=== PATIENT | female | born 1980 | race Caucasian/White ===

== ENCOUNTER 2023-02-13 11:45 | Emergency (ER) | payer SELFPAY ==
[2023-02-13 11:49] VITALS: BP 156/90; PULSE 100; RESP 20; TEMP 36.7; O2SAT 99; BMI 35.4
--- NOTE | 2023-02-13 12:10 | ED_ITS ---
HPI - Abdominal Pain General: Chief Complaint: Abdominal Pain Stated Complaint: Left side pains Time Seen by Provider: 02/13/23 11:57 History of Present Illness: 42-year-old female comes in today with complaints of left abdominal pain radiating up into her left shoulder and left neck. Patient appears nontoxic. Patient has a history of anemia and heavy menstrual flow. Patient does not take routine medications. Patient is a smoker. Patient reports the pain for over 1 week. Patient reports increased stress due to her father's fight with glioma. Review of Systems General: Reports: 10 or more systems reviewed and unremarkable except in HPI and below Card: Reports: chest pain Resp: Reports: other (Pain with deep breath) GI: Reports: abdominal pain : Denies: difficulty voiding Skin/Breast: Denies: rash Physical Exam Const: COMMON NORMALS: alert HENMT: COMMON NORMALS: normocephalic HEAD & SCALP: normocephalic MOUTH: Normal oral and palatal mucosa present Neck/C-Spine: COMMON NORMALS: full ROM Chest: COMMONS NORMALS: normal palpation of entire chest wall Resp: COMMON NORMALS: normal respiratory effort and clear to auscultation bilaterally AUSCULTATION: clear to auscultation bilaterally Cardio: COMMON NORMALS: regular rate and regular rhythm RATE: regular rate RHYTHM: regular rhythm GI: AUSCULTATION: Yes normoactive bowel sounds PALPATION: Yes Tenderness to palpation present (GI) Details: LUQ : COMMON NORMALS: Yes no CVA tenderness BLADDER/KIDNEY EXAM: Yes no CVA tenderness Back/Pelvis: COMMON NORMALS: no CVA tenderness Extremity: COMMON NORMALS: no pedal edema Neuro: SENSORIUM/ORIENTATION: Yes alert Skin: COMMON NORMALS: turgor normal GENERAL SKIN EXAM: turgor normal Course Vital Signs: Vital signs: Vital Signs Temperature 98.0 F 02/13/23 11:49 Pulse Rate 90 02/13/23 16:12 Respiratory Rate 16 02/13/23 16:12 Blood Pressure 152/90 02/13/23 16:12 Pulse Oximetry 100 02/13/23 16:12 Oxygen Delivery Me thod Room Air 02/13/23 16:12 MDM - Abdominal Pain Medical Decision Making 42-year-old female comes in today with complaints of left upper quadrant pain radiating to her chest and neck. Patient reports symptoms for over 1 week. On exam abdomen soft with some tenderness in the left upper quadrant. Bowel sounds are present. Vital signs are normal except for some elevation in blood pressure. Differential diagnosis includes gastritis, diverticulitis, ACS, stable angina, anxiety. Laboratory values were unremarkable except for hemoglobin of 7. This is no change from patient's last hemoglobin from a year and a half ago. CMP was unremarkable. D-dimer was slightly elevated at 1.2. CT of the abdomen and pelvis and CTA of the chest noted no significant abnormalities. Chest x-ray was negative. Reviewed exam with patient with recommendations for treatment and follow-up. Believe patient's symptoms are most likely due to anxiety and musculoskeletal pain secondary to sleep disturbance from dealing with her dad's illness. Patient has this chronic anemia which further discussion realized patient has a lot of menstrual bleeding we will recommend follow-up with [facility] for consultation regarding abnormal vaginal bleeding. We also recommended follow-up with hematology and oncology due to the abnormal spleen on the CT scan and her persistent anemia. Patient reports understanding of care plan and need for follow-up or return to the ER. Lab Data 02/13/23 12:24 02/13/23 12:24 Labs/Radiology: Radiology Impressions Chest X-Ray 02/13/23 12:28 Impression: Negative chest. Abdomen/Pelvis CT 02/13/23 12:46 IMPRESSION: 1. Areas of decreased wedge-shaped enhancement involving the posterior lateral spleen suspicious for prior splenic infarcts or splenic laceration. No perisplenic fluid. 2. Mild hepatomegaly. 3. No hydronephrosis in either kidney. 4. Multifollicular ovaries bilaterally. 5. No other acute findings. Notified GENESIS Ladd at 02/13/2023 1:50 PM. Chest CTA 02/13/23 15:21 IMPRESSION: 1. No evidence of pulmonary embolus. 2. Lungs are well aerated. No acute pulmonary infiltrates. 3. No other suspicious findings. Laboratory Results WBC 9.3 10^3/uL (4.0-10.0) 02/13/23 12:24 RBC 4.22 10^6/uL (4.1-5.3) 02/13/23 12:24 Hgb 7.0 g/dL (11.5-15.3) L 02/13/23 12:24 Hct 28.3 % (37.0-47.0) L 02/13/23 12:24 MCV 67.1 fl (81-99) L 02/13/23 12:24 MCH 16.6 pg (28.0-34.0) L 02/13/23 12: MCHC 24.7 g/dL (30.0-36.0) L 02/13/23 12:24 RDW 19.3 % (12.1-15.1) H 02/13/23 12:24 Plt Count 574 10^3/cmm (130-400) H 02/13/23 12:24 MPV 8.8 fL (7.4-10.4) 02/13/23 12:24 Neut % (Auto) 55.6 % 02/13/23 12: Lymph % (Auto) 32.6 % 02/13/23 12:24 [place] % (Auto) 5.0 % 02/13/23 12: Eos % (Auto) 5.7 % 02/13/23 12: Baso % (Auto) 0.8 % 02/13/23 12: Neut # (Auto) 5.16 10^3/uL (1.8-7.7) 02/13/23 12: Lymph # (Auto) 3.0 10^3/uL (0.8-4.8) 02/13/23 12: [place] # (Auto) 0.5 10^3/uL (0.2-0.9) 02/13/23 12:24 Eos # (Auto) 0.5 10^3/uL (0.0-0.8) 02/13/23 12: Baso # (Auto) 0.1 10^3/uL (0.0-0.1) 02/13/23 12: Nucleated RBC % (auto) 0 % 02/13/23 12: Nucleated RBCs # 0.0 /100WBC 02/13/23 12:24 D-Dimer 1.21 ug/mIFEU (0-0.59) H 02/13/23 12:24 Sodium 139 mmol/L (136-145) 02/13/23 12:24 Potassium 3.5 mmol/L (3.5-5.1) 02/13/23 12:24 Chloride 103 mmol/L (98-107) 02/13/23 12:24 Carbon Dioxide 23 mmol/L (22-29) 02/13/23 12:24 Anion Gap 16.5 (5-19) 02/13/23 12:24 BUN 6 mg/dL (6-20) 02/13/23 12:24 Creatinine 0.5 mg/dL (0.5-0.9) 02/13/23 12:24 GFR Calculation 135.3 mL/min (90-130) H 02/13/23 12:24 Glucose 86 mg/dL (65-115) 02/13/23 12:24 Calculated Osmolality 285 mOsm/kg (285-295) 02/13/23 12:24 Calcium 9.1 mg/dL (8.5-10.5) 02/13/23 12:24 Total Bilirubin 0.2 mg/dL (0.15-1.2) 02/13/23 12:24 AST 8 U/L (0-32) 02/13/23 12:24 ALT < 5 U/L (0-33) 02/13/23 12:24 Alkaline Phosphatase 61 U/L (35-105) 02/13/23 12:24 Troponin T Baseline 6 ng/L (0-10) 02/13/23 12:24 Total Protein 7.8 g/dL (6.6-8.7) 02/13/23 12:24 Albumin 4.6 g/dL (3.5-5.2) 02/13/23 12:24 Globulin 3.2 g/dL (1.3-4.6) 02/13/23 12:24 Lipase 39 U/L (13-60) 02/13/23 12:24 HCG, Qual Negative (Negative) 02/13/23 12:24 Urine Color Yellow (Yellow) 02/13/23 12:24 Urine Appearance Clear (CLEAR) 02/13/23 12:24 Urine pH 6 (5-7) 02/13/23 12:24 Ur Specific [place] 1.015 (1.005-1.030) 02/13/23 12:24 Urine Protein Neg (Negative) 02/13/23 12:24 Urine Glucose (UA) Norm (Normal) 02/13/23 12:24 Urine Ketones Negative (Negative) 02/13/23 12:24 Urine Blood Neg (Negative) 02/13/23 12:24 Urine Nitrate Negative (Negative) 02/13/23 12:24 Urine Bilirubin Neg (Negative) 02/13/23 12:24 Urine Urobilinogen Norm mg/dL (Negative) 02/13/23 12:24 Ur Leukocyte Esterase Negative (Negative) 02/13/23 12:24 EKG Data EKG 1: EKG interpretation date: 02/13/23 EKG interpretation time: 12:30 Prior EKG tracings: not available for review Interpretation: EKG shows a regular rate at [address] elevation no ectopy is noted. No prior exam was available for comparison. Discharge Plan Discharge Patient Disposition: Home Clinical Impression: Chronic anemia Heavy menstrual bleeding Qualifiers: Menorrhagia type: with regular cycle Qualified Code(s): N92.0 - Excessive and frequent menstruation with regular cycle Condition: Stable Prescriptions: New FeroSul 325 mg (65 mg iron) tablet 325 mg PO TID Qty: 90 0RF Discharge Orders: Discharge ED (Routine); Ordered 02/13/23 Ordered By: Elliott Urena Patient Instructions: Anemia (ED) Activity Restrictions/Additional Instructions: Home and rest. Take iron 325 mg 1 tablet 3 times a day with each meal daily. Drink plenty of water with medication. Follow-up with primary care for further instruction. 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 Return to ER for worsening symptoms such as high fever, severe shortness of breath, or fainting episodes. Coding Level of Care Code ED [employer] Operations [employer] for Eren Julian
--- NOTE | 2023-02-13 12:11 | ECG_ITS ---
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 Measurements Intervals [place] Rate: 91 P: 56 [place]: 149 QRS: 72 QRSD: 88 T: 58 QT: 338 QTc: 416 Interpretive Statements SINUS RHYTHM No previous ECG available for comparison Electronically Signed On 02-13-2023 13:40:07 CDT by Harry Collier M.D. [id number]
[2023-02-13 12:13] VITALS: BP 162/84; PULSE 99; RESP 16; O2SAT 99
--- NOTE | 2023-02-13 12:28 | XR_ITS ---
WS: [id number] Portable AP upright chest, 02/13/2023 Clinical Data: left chest pain Comparison: None. Findings: No nodules, masses or effusions are seen. The heart is normal. The pulmonary vascularity is not increased. No pneumonia or pneumothorax is seen. XR/XR chest 1V portable [id number] Impression: Negative chest.
[2023-02-13 12:38] VITALS: BP 127/94; PULSE 97; RESP 16; O2SAT 100
[2023-02-13 12:45] LABS: Add Urine Microscopic? NO; Basophils # 0.1 10^3/uL (0.0-0.1); Basophils % 0.8 %; Charge for UA Resulting for Rev; Eosinophils # 0.5 10^3/uL (0.0-0.8); Eosinophils % 5.7 %; Hematocrit 28.3 % (37.0-47.0); Lymphocytes % 32.6 %; Mean Corpuscular HGB Conc 24.7 g/dL (30.0-36.0); Mean Corpuscular Hemoglobin 16.6 pg (28.0-34.0); Mean Corpuscular Volume 67.1 fl (81-99); Mean Platelet Volume 8.8 fL (7.4-10.4); Monocytes # 0.5 10^3/uL (0.2-0.9); Neutrophils # 5.16 10^3/uL (1.8-7.7); Neutrophils % 55.6 %; Nucleated Red Blood Cells % 0 %; Platelet Count 574 10^3/cmm (130-400); Red Blood Count 4.22 10^6/uL (4.1-5.3); Red Cell Distribution Width 19.3 % (12.1-15.1); White Blood Count 9.3 10^3/uL (4.0-10.0)
--- NOTE | 2023-02-13 12:46 | CT_ITS ---
WS: [id number] CT ABDOMEN PELVIS TECHNIQUE: Contrast-enhanced CT of the abdomen and pelvis with coronal and sagittal reformatted image s. CLINICAL INFORMATION: left side abd pain COMPARISON: None. DLP: 658.[address] scans at [facility] use at least one of these dose optimization techniques: automated e xposure control; mA and/or kV adjustment per patient size (includes targeted exams where dose is matc hed to clinical indication); or iterative reconstruction. FINDINGS: Mild hepatomegaly. Enlarged RIGHT hepatic lobe. A few tiny hepatic cysts. Suspected tiny cavernous he mangioma near the liver dome. Gallbladder is contracted. Lung bases are well aerated. Normal GE junction. Adrenal glands are normal. Normal renal parenchymal enhancement. No hydronephrosi s. Wedge-shaped areas of decreased attenuation in the posterolateral spleen suspicious for splenic infar cts or prior splenic laceration. No significant fluid around the spleen. Normal pancreatic parenchyma l enhancement. Normal portal vein and splenic vein. Normal appendix in the RIGHT lower quadrant. Normal caliber abdominal aorta. Celiac and SMA are paten t. Multifollicular ovaries bilaterally. CT/CT abdomen pelvis w con* [id number] IMPRESSION: 1. Areas of decreased wedge-shaped enhancement involving the posterior lateral spleen suspicious for prior splenic infarcts or splenic laceration. No perispl enic fluid. 2. Mild hepatomegaly. 3. No hydronephrosis in either kidney. 4. Multifollicular ovaries bilaterally. 5. No other acute findings. Notified GENESIS Ladd at 02/13/2023 1:50 PM.
[2023-02-13 12:55] LABS: HCG, Serum Qual Negative (Negative)
[2023-02-13 13:02] LABS: Alanine Aminotransferase < 5 U/L (0-33); Albumin Level 4.6 g/dL (3.5-5.2); Alkaline Phosphatase 61 U/L (35-105); Anion Gap 16.5 (5-19); Aspartate Amino Transferase 8 U/L (0-32); Blood Urea Nitrogen 6 mg/dL (6-20); Calcium 9.1 mg/dL (8.5-10.5); Carbon Dioxide 23 mmol/L (22-29); Chloride 103 mmol/L (98-107); Globulin 3.2 g/dL (1.3-4.6); Glomerular Filtration Rate 135.3 mL/min (90-130); Glucose 86 mg/dL (65-115); Lipase 39 U/L (13-60); Osmolality Calculated 285 mOsm/kg (285-295); Potassium 3.5 mmol/L (3.5-5.1); Sodium 139 mmol/L (136-145); Total Bilirubin 0.2 mg/dL (0.15-1.2); Total Protein 7.8 g/dL (6.6-8.7)
[2023-02-13 13:03] LABS: Troponin(5th) Baseline 6 ng/L (0-10)
[2023-02-13 13:07] LABS: Bilirubin Urine Neg (Negative); Blood Urine Neg (Negative); Glucose Urine UA Norm (Normal); Ketones Urine Negative (Negative); Leukocyte Esterase Urine Negative (Negative); Nitrate Urine Negative (Negative); Protein Urine Neg (Negative); Specific Gravity, Urine 1.015 (1.005-1.030); Urine Appearance Clear (CLEAR); Urine Color Yellow (Yellow); Urobilinogen Urine Norm (Negative); pH Urine 6 (5-7)
[2023-02-13] MEDS: iohexol 350 mg/mL 500 mL Btl (per mL) IV ×2 (13:14→15:48)
[2023-02-13 13:40] VITALS: BP 127/94; PULSE 91; RESP 16; O2SAT 100
--- NOTE | 2023-02-13 14:11 | ECG_ITS ---
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 Measurements Intervals [place] Rate: 87 P: 51 OR: 160 QRS: 70 QRSD: 88 T: 54 QT: 355 QTc: 427 Interpretive Statements SINUS RHYTHM Compared to ECG 02/13/2023 12:24:34 No significant changes Electronically Signed On 02-13-2023 21:39:15 CDT by Harry Collier M.D. [id number]
[2023-02-13 14:57] LABS: D Dimer 1.21 ug/mIFEU (0-0.59)
--- NOTE | 2023-02-13 15:21 | CT_ITS ---
WS: [id number] CTA OF THE CHEST WITH PULMONARY EMBOLISM PROTOCOL TECHNIQUE: High-resolution contrast enhanced CTA of the chest with coronal and sagittal reformatted i selene with pulmonary embolism protocol. MIP images are also reviewed. CLINICAL INFORMATION: chest pain, tachycardia COMPARISON: None. DLP: 385.[address] scans at [facility] use at least one of these dose optimization techniques: automated e xposure control; mA and/or kV adjustment per patient size (includes targeted exams where dose is matc hed to clinical indication); or iterative reconstruction. FINDINGS: Proximal main pulmonary arteries are normal. Normal segmental and subsegmental pulmonary arteries. No evidence of pulmonary embolus. Lungs are well aerated. No acute pulmonary infiltrates. Slight bibasi lar atelectasis. Adrenal glands are normal. Small esophageal hiatal hernia. Suspected splenic infarcts partially visua lized and described on the CT abdomen pelvis. CT/CT angio chest PE protcl [id number] IMPRESSION: 1. No evidence of pulmonary embolus. 2. Lungs are well aerated. No acute pulmonary infiltrates. 3. No other suspicious findings.
[2023-02-13 16:12] VITALS: BP 152/90; PULSE 90; RESP 16; O2SAT 100
--- NOTE | 2023-02-16 12:54 | DCPLANNER ---
Addendum entered by Beatriz Aviles 03/12/23 11:22: manager of finance received the following message from [facility] regarding follow up appointment: Patient never returned our call to schedule an appointment//JS Addendum entered by Beatriz Aviles 02/20/23 11:40: manager of finance received the following messages from [facility] regarding follow up appointment: Humberto Lobo completed item. On Thu 11:07a February 19, 2023 Abby Ibanez (Covering For: [facility]) Wrote To: [facility] I called the pt to 02/17/23, 02/18/23, 02/1823 schedule an appt. I left a vm each time. I also mailed a letter on 02/19/23 On Tue 10:55a February 17, 2023 Abby Ibanez (Covering For: [facility]) Wrote To: [facility] I called the pt and left a vm letting her know that I was calling to schedule an appt. Addendum entered by Beatriz Aviles 02/18/23 13:51: manager of finance received the following message from [facility] regarding follow up appointment: I called the pt and left a vm letting her know that I was calling to schedule an appt. Original Note: manager of finance had message to schedule a follow up appointment for patient with [employer] [employer]. manager of finance sent patients information to the front office staff at [facility]. Patients information will be printed and reviewed. Clinic will call patient with appointment information.
--- NOTE | 2023-02-16 12:56 | DCPLANNER ---
Addendum entered by Beatriz Aviles 02/18/23 13:22: Patient has a follow up appointment scheduled for Thursday, February 23, 2023 at 8:[address] Borrego. Original Note: complex case manager had message to schedule a follow up appointment for patient with hematology, oncology. complex case manager sent patients information to [facility] Patients information will be printed and reviewed. Clinic will call patient with appointment information.
--- NOTE | 2023-02-22 09:19 | DCPLANNER ---
TCM called patient due to no primary care physician - no answer at this time.
== END 2023-02-13 17:22 | disposition home or self-care (01) ==
PROVIDERS: Emergency Provider Nurse Practitioner Family
DX: N92.0 Excessive and frequent menstruation with regular cycle (principal); D64.89 Other specified anemias; F17.210 Nicotine dependence, cigarettes, uncomplicated
CPT/HCPCS: 71045; 71275; 74177; 80053; 81003; 83690; 84484; 84703; 85025; 85378; 93005; 99285; Q9967

== ENCOUNTER 2023-03-23 11:10 | Oncology outpatient (recurring) (ONCR) | payer BC, MEDICAID, SELFPAY | END 2023-04-03 23:59 | disposition home or self-care (01) | PROVIDERS: Visit Provider Internal Medicine Medical Oncology | DX: D50.9 Iron deficiency anemia, unspecified (principal) | CPT/HCPCS: 99203 ==